=== PATIENT | male | born 1960 | race Caucasian/White ===

== ENCOUNTER → 2019-03-15 | Outpatient (CLI) | payer OTHER ==
--- NOTE | 2019-03-15 19:17 | REP ---
Clinical: Trauma. Technique: AP, lateral, bilateral oblique views of the left hand. Findings: There is posterior dislocation at the fifth digit proximal interphalangeal joint. No obvious acute fracture. Impression: Posterior dislocation at the fifth PIP joint. Electronically Signed by Pablo Platt MD 03/15/2019 07:08 P
== END ==
LOC: M ADAMS 18:55
PROVIDERS: ATTEND Physician Assistant Medical
DX: S63.257A Unspecified dislocation of left little finger, initial encounter (principal); X58.XXXA Exposure to other specified factors, initial encounter; Y92.89 Other specified places as the place of occurrence of the external cause